=== PATIENT | female | born 1985 | race Caucasian/White ===

== ENCOUNTER → 2023-06-24 14:33 | Outpatient (REF) | payer BC, SELFPAY | LOC: PNTC 14:33 | PROVIDERS: ATTENDING PHYSICIAN Obstetrics & Gynecology | DX: O09.529 Supervision of elderly multigravida, unspecified trimester (principal); O09.819 Supervision of pregnancy resulting from assisted reproductive technology, unspecified trimester | CPT/HCPCS: 76816 ==

== ENCOUNTER → 2023-07-22 13:59 | Outpatient (REF) | payer BC, SELFPAY | LOC: PNTC 13:59 | PROVIDERS: ATTENDING PHYSICIAN Obstetrics & Gynecology | DX: O09.529 Supervision of elderly multigravida, unspecified trimester (principal); O09.819 Supervision of pregnancy resulting from assisted reproductive technology, unspecified trimester | CPT/HCPCS: 76816 ==

== ENCOUNTER 2023-08-08 12:20 | Observation (INO) | payer BC, SELFPAY ==
[2023-08-08 12:43] VITALS: BP 112/59; BMI 37.8
[2023-08-08 13:11] LABS: Hematocrit 29.6 % (37.0-47.0); Mean Corp Hgb Conc. 33.8 g/dL (33.0-37.0); Mean Corpuscular Volume 85.8 fL (81.0-99.0); Mean Platelet Volume 9.6 fL (7.4-10.4); Platelet Count 269 10^3/uL (130-400); Red Blood Cell Count 3.45 10^6/uL (4.20-5.40); Red Cell Dist. Width 13.2 % (11.5-14.5); White Blood Cell Count 8.6 10^3/uL (4.8-10.8)
[2023-08-08] MEDS: LR 500 IV (16:21)
[2023-08-08] MEDS: CELESTONE SOLUSPAN 2 MG IM (16:22)
[2023-08-08] MEDS: LR 1000 IV ×2 (16:50→22:30)
[2023-08-08] MEDS: TUMS 2 TABLET PO (22:38)
[2023-08-09] MEDS: TUMS 2 TABLET PO (03:07)
[2023-08-09] MEDS: ASPIR LOW (ENTERIC COATED) 81 MG PO (07:56)
[2023-08-09] MEDS: PRENATAL PLUS 1 TABLET PO (07:56)
[2023-08-09] MEDS: LR 1000 IV (07:56)
[2023-08-09] MEDS: VITAMIN D3 (cholecalciferol) 50 MCG PO (10:06)
[2023-08-09] MEDS: CELESTONE SOLUSPAN 2 MG IM (15:26)
== END 2023-08-09 15:40 | disposition home or self-care (01) ==
LOC: LDRP 12:20
PROVIDERS: ADMITTING PHYSICIAN Obstetrics & Gynecology
DX: Z04.3 Encounter for examination and observation following other accident (principal); Z3A.34 34 weeks gestation of pregnancy
CPT/HCPCS: 76815; 85027; 85460; 86850; 86900; 86901; G0378

== ENCOUNTER → 2023-08-13 10:03 | Outpatient (REF) | payer BC, SELFPAY | LOC: PNTC 10:03 | PROVIDERS: ATTENDING PHYSICIAN Obstetrics & Gynecology | DX: O09.529 Supervision of elderly multigravida, unspecified trimester (principal); O99.210 Obesity complicating pregnancy, unspecified trimester; O09.819 Supervision of pregnancy resulting from assisted reproductive technology, unspecified trimester | CPT/HCPCS: 59025; 76815 ==

== ENCOUNTER → 2023-08-19 13:32 | Outpatient (REF) | payer BC, SELFPAY | LOC: PNTC 13:32 | PROVIDERS: ATTENDING PHYSICIAN Obstetrics & Gynecology | DX: O09.529 Supervision of elderly multigravida, unspecified trimester (principal); Z33.3 Pregnant state, gestational carrier | CPT/HCPCS: 59025; 76816 ==

== ENCOUNTER 2023-09-08 19:32 | Inpatient (IN) | payer BC, SELFPAY ==
[2023-09-08 19:37] VITALS: BMI 38.4
[2023-09-08 20:40] LABS: % Basophils 0.3 % (0-2); % Eosinophils 1.1 % (0-6); % Immature Granulocytes 1.2 % (0-0.5); % Lymphocytes 20.7 % (20.5-51.1); % Monocytes 6.2 % (1.7-9.3); % Neutrophils 70.5 % (42.2-75.2); Absolute Eosinophils 0.1 10^3/uL (0-0.7); Absolute Immature Granulocytes 0.1 10^3/uL (0-0.05); Absolute Lymphocytes 2.3 10^3/uL (1.2-3.4); Absolute Monocytes 0.7 10^3/uL (0.1-0.6); Absolute Neutrophils 7.7 10^3/uL (1.4-6.5); Mean Corp Hgb Conc. 34.5 g/dL (33.0-37.0); Mean Corpuscular Hgb 27.7 pg (27.0-31.0); Mean Corpuscular Volume 80.3 fL (81.0-99.0); Mean Platelet Volume 10.4 fL (7.4-10.4); Nucleated Red Blood Cells % 0 %; Platelet Count 266 10^3/uL (130-400); Red Blood Cell Count 3.61 10^6/uL (4.20-5.40); Red Cell Dist. Width 13.9 % (11.5-14.5); White Blood Cell Count 10.9 10^3/uL (4.8-10.8)
[2023-09-08 20:42] VITALS: BP 114/63; BMI 38.3
[2023-09-08] MEDS: CYTOTEC 50 MICROGRAM VAG (21:10)
[2023-09-08] MEDS: TUMS EX (EXTRA STRENGTH) CHEWABLE 2 TABLET PO (21:30)
[2023-09-09] MEDS: CYTOTEC 50 MICROGRAM PO (00:56)
[2023-09-09] MEDS: LR 1000 IV ×2 (01:55→20:24)
[2023-09-09] MEDS: CYTOTEC PO (05:23)
[2023-09-09] MEDS: PITOCIN 30 UNITS/NSS 500 ML IV ×2 (09:44→20:24)
[2023-09-10] MEDS: MORPHINE SULFATE 2 MG IV (10:32)
[2023-09-10] MEDS: CYTOTEC PO ×3 (11:09→23:04)
[2023-09-10] MEDS: CYTOTEC 50 MICROGRAM PO ×4 (11:10→19:26)
[2023-09-10] MEDS: PITOCIN 30 UNITS/NSS 500 ML IV (23:36)
[2023-09-11] MEDS: LR 1000 IV (01:05)
[2023-09-11] MEDS: CYTOTEC PO ×2 (05:15→07:42)
[2023-09-11] MEDS: SUBLIMAZE 100 MCG EPIDURAL (07:13)
[2023-09-11] MEDS: FENTANYL/BUPIVACAINE 100 EPIDURAL (07:13)
[2023-09-11] MEDS: MOTRIN 600 MG PO (16:07)
[2023-09-11] MEDS: TYLENOL 650 MG PO (19:45)
[2023-09-12] MEDS: TYLENOL 650 MG PO ×3 (04:26→20:31)
[2023-09-12 04:36] LABS: Hematocrit 27.6 % (37.0-47.0); Hemoglobin 9.3 g/dL (12.0-16.0)
[2023-09-12] MEDS: PRENATAL PLUS 1 TABLET PO (07:52)
[2023-09-12] MEDS: SENOKOT-S 1 TABLET PO (07:52)
[2023-09-12] MEDS: FEOSOL 325 MG PO (07:52)
[2023-09-12] MEDS: MOTRIN 600 MG PO ×4 (07:52→22:27)
[2023-09-12] MEDS: HYDROCORTISONE 2.5% OINTMENT 1 APPLIC TOPICAL (20:32)
[2023-09-13] MEDS: MOTRIN 600 MG PO (07:48)
[2023-09-13] MEDS: PRENATAL PLUS 1 TABLET PO (07:49)
[2023-09-13] MEDS: FEOSOL 325 MG PO (07:49)
[2023-09-13] MEDS: HYDROCORTISONE 2.5% OINTMENT 1 APPLIC TOPICAL (08:15)
[2023-09-13 14:34] LABS: Syphilis/T. pallidum Ab Reflex Negative (Negative)
== END 2023-09-13 11:15 | disposition home or self-care (01) | DRG 806 ==
LOC: LDRP 19:32
PROVIDERS: Obstetrics & Gynecology; ADMITTING PHYSICIAN Obstetrics & Gynecology
PROC: 3E0P7VZ Introduction of Hormone into Female Reproductive, Via Natural or Artificial Opening (ICD-10-PCS; 2023-09-08)
PROC: 3E0DXGC Introduction of Other Therapeutic Substance into Mouth and Pharynx, External Approach (ICD-10-PCS; 2023-09-09)
PROC: 3E033VJ Introduction of Other Hormone into Peripheral Vein, Percutaneous Approach (ICD-10-PCS; 2023-09-09)
PROC: 0U7C7ZZ Dilation of Cervix, Via Natural or Artificial Opening (ICD-10-PCS; 2023-09-10)
PROC: 0HQ9XZZ Repair Perineum Skin, External Approach (ICD-10-PCS; 2023-09-11)
PROC: 10907ZC Drainage of Amniotic Fluid, Therapeutic from Products of Conception, Via Natural or Artificial Opening (ICD-10-PCS; 2023-09-11)
PROC: 10E0XZZ Delivery of Products of Conception, External Approach (ICD-10-PCS; 2023-09-11)
DX: O69.1XX0 Labor and delivery complicated by cord around neck, with compression, not applicable or unspecified (principal); O87.2 Hemorrhoids in the puerperium; Z37.0 Single live birth; O99.354 Diseases of the nervous system complicating childbirth; Z3A.39 39 weeks gestation of pregnancy; G43.909 Migraine, unspecified, not intractable, without status migrainosus; O76 Abnormality in fetal heart rate and rhythm complicating labor and delivery; O63.0 Prolonged first stage (of labor)
CPT/HCPCS: 88307; 85014; 85018; 85025; 86780; 86850; 86900; 86901

== ENCOUNTER → 2023-11-20 13:09 | Outpatient (REF) | payer BC, SELFPAY | LOC: HWEVLT 13:09 | PROVIDERS: ATTENDING PHYSICIAN Radiology Vascular & Interventional Radiology | DX: I83.893 Varicose veins of bilateral lower extremities with other complications (principal) | CPT/HCPCS: 93970 ==

== ENCOUNTER → 2023-12-13 13:02 | Outpatient (REF) | payer BC, SELFPAY | LOC: WDC 13:02 | PROVIDERS: ATTENDING PHYSICIAN Obstetrics & Gynecology | DX: Z12.31 Encounter for screening mammogram for malignant neoplasm of breast (principal) | CPT/HCPCS: 77063; 77067 ==

== ENCOUNTER → 2024-02-19 09:29 | Outpatient (REF) | payer BC, SELFPAY | LOC: HWEVLT 09:29 | PROVIDERS: ATTENDING PHYSICIAN Radiology Diagnostic Radiology | DX: I83.892 Varicose veins of left lower extremity with other complications (principal) | CPT/HCPCS: 36478; C1769 ==

== ENCOUNTER → 2024-03-04 11:15 | Outpatient (REF) | payer BC, SELFPAY | LOC: HWEVLT 11:15 | PROVIDERS: ATTENDING PHYSICIAN Radiology Vascular & Interventional Radiology | DX: I83.892 Varicose veins of left lower extremity with other complications (principal) | CPT/HCPCS: 93971 ==

== ENCOUNTER → 2024-12-18 11:23 | Outpatient (REF) | payer BC, SELFPAY | LOC: WDC 11:23 | PROVIDERS: ATTENDING PHYSICIAN Obstetrics & Gynecology | DX: Z12.31 Encounter for screening mammogram for malignant neoplasm of breast (principal) | CPT/HCPCS: 77063; 77067 ==